=== PATIENT | female | born 1955 | race Caucasian/White ===

== ENCOUNTER 2025-09-05 09:18 | Outpatient (CLI) | payer MEDICARE | END 2025-09-05 09:19 | disposition home or self-care (01) | LOC: SCSBT 09:18 | PROVIDERS: ATTEND Family Medicine | DX: M85.89 Other specified disorders of bone density and structure, multiple sites (principal); M85.851 Other specified disorders of bone density and structure, right thigh; M85.852 Other specified disorders of bone density and structure, left thigh | CPT/HCPCS: 77080 ==